=== PATIENT | male | born 1995 | race Caucasian/White ===

== ENCOUNTER 2024-09-11 01:49 | Emergency (ER) | payer SELFPAY ==
[~2024-09-11] VITALS: Ht 170.2 cm; Wt 64.0 kg
[2024-09-11 02:01] VITALS: BP 124/90; PULSE 70; RESP 20; TEMP 36.6; O2SAT 100
[2024-09-11] MEDS ORDERED: DICYCLOMINE 10 MG/5 ML ORAL SYR PO STA (02:19)
[2024-09-11] MEDS: MAGNESIUM/ALUMINUM HYDROXIDE/SIMETHICONE 30ML UDC PO STA (02:34)
[2024-09-11] MEDS: DICYCLOMINE HCL 10MG CAPSULE PO NR (02:34)
[2024-09-11] MEDS: ONDANSETRON 4MG ODT PO STA (02:34)
== END 2024-09-11 02:52 | disposition home or self-care (01) ==
LOC: ER 01:49
DX: F10.129 Alcohol abuse with intoxication, unspecified (principal); R11.2 Nausea with vomiting, unspecified; Y90.9 Presence of alcohol in blood, level not specified
CPT/HCPCS: 99284; Q0162